=== PATIENT | female | born 1970 | race Caucasian/White ===

== ENCOUNTER → 2018-05-05 13:00 | Outpatient (CLI) | payer BC, SELFPAY ==
--- NOTE | 2018-05-05 13:02 | BI_ITS ---
MAMMOGRAPHY - BILATERAL DIAGNOSTIC REASON FOR EXAM: Female, 47 years old. 66 remote bilateral breast reduction surgery. PERTINENT HISTORY: TECHNIQUE: Digital bilateral breast marlon (3D mammographic acquisition) in the CC and MLO projections. 2-D mediolateral oblique (MLO) and craniocaudad (CC) views of both breasts were obtained. CAD: Full Field Digital Mammography with Computer Added Detection was performed. COMPARISON: Comparison is made with prior study dated January 06, 2017. FINDINGS: Breast Composition: The breasts are heterogeneously dense, which may obscure small masses. There is a 1 cm x 0.7 cm possible nodular density in the central portion of the left breast as seen on the craniocaudad view. The patient will be recalled for additional views including compression spot views and 90 degree left lateral view. No other significant abnormalities are identified. BI/SCREEN MAMM (CAD) W/MARLON BILAT IMPRESSION: Questionable nodular density in the mid left breast as described as seen on the craniocaudad view. The patient will be recalled for additional views. Recall Side: Left Breast ASSESSMENT CATEGORY: BIRADS Category 0: Incomplete. Need additional imaging evaluation. A letter regarding these results will be sent to the patient by the facility within 30 days. Approximately 10% of breast cancers are not detected by mammography. A normal mammogram should not delay biopsy of a clinically suspicious abnormality. Electronically Signed: Daniel Moise, at 14:54 EDT , Service support ,
== END ==
PROVIDERS: PCP Family Medicine; Referring Provider Obstetrics & Gynecology; Visit Provider Obstetrics & Gynecology
DX: Z12.31 Encounter for screening mammogram for malignant neoplasm of breast (principal)
CPT/HCPCS: 77063; 77067

== ENCOUNTER → 2018-05-11 08:54 | Outpatient (CLI) | payer BC, SELFPAY ==
--- NOTE | 2018-05-11 08:58 | BI_ITS ---
MAMMOGRAPHY - UNILATERAL DIAGNOSTIC: LEFT BREAST REASON FOR EXAM: Female, 47 years old. Asymmetrical density in the left breast as seen on craniocaudad view. PERTINENT HISTORY: Non-contributory. TECHNIQUE: 90 degree lateral and compression spot views of the left breast in the MLO and craniocaudad projections were obtained. CAD: Full Field Digital Mammography with Computer Added Detection was performed. COMPARISON: Comparison is made with prior mammogram dated May 05, 2018. FINDINGS: Breast Composition: The breasts are heterogeneously dense, which may obscure small masses. The previously seen nodular density in the craniocaudad view of the left breast is not well seen at this time. This may represent superimposition of tissue. Correlation with ultrasound is recommended. No other significant abnormalities are identified. BI/DIAG MAMM W/CAD, UNILAT IMPRESSION: The previously seen density is not well seen on this examination. Correlation with ultrasound is recommended. ASSESSMENT CATEGORY: BIRADS Category 0: Incomplete. Need additional imaging evaluation. A letter regarding these results will be sent to the patient by the facility within 30 days. Approximately 10% of breast cancers are not detected by mammography. A normal mammogram should not delay biopsy of a clinically suspicious abnormality. Electronically Signed: Daniel Moise, at 9:59 EDT , Service support ,
--- NOTE | 2018-05-11 09:28 | US_ITS ---
STUDY: ULTRASOUND BREAST - LEFT REASON FOR EXAM: Female, 47 years old. Abnormal screening mammogram. TECHNIQUE: Axial and longitudinal images of the LEFT breast were performed with a high resolution ultrasound transducer. COMPARISON: Comparison is made with prior mammogram dated May 11, 2018 and May 05, 2018. FINDINGS: LEFT Breast: The entire breast was examined by ultrasound. There is homogeneous fibroglandular tissue. No solid or cystic mass lesion is seen. US/Breast Limited Unilateral IMPRESSION: Unremarkable sonogram of the breasts. ASSESSMENT CATEGORY: BIRADS Category 1: Negative. A letter regarding these results will be sent to the patient by the facility within 30 days. Electronically Signed: Daniel Moise, at 10:02 EDT , Service support ,
== END ==
PROVIDERS: PCP Family Medicine; Referring Provider Obstetrics & Gynecology; Visit Provider Obstetrics & Gynecology
DX: R92.8 Other abnormal and inconclusive findings on diagnostic imaging of breast (principal)
CPT/HCPCS: 76642; 77065

== ENCOUNTER → 2021-01-16 10:36 | Outpatient (CLI) | payer BC, SELFPAY ==
--- NOTE | 2021-01-16 10:38 | BI_ITS ---
MAMMOGRAPHY - BILATERAL SCREENING REASON FOR EXAM: Female, 50 years old. Routine annual screening examination. PERTINENT HISTORY: Grandmother with breast cancer. History of prior bilateral breast reduction surgery. TECHNIQUE: Digital bilateral breast marlon (3D mammographic acquisition) in the CC and MLO projections. 2-D mediolateral oblique (MLO) and craniocaudad (CC) views of both breasts were obtained. CAD: Full Field Digital Mammography with Computer Added Detection was performed. COMPARISON: Comparison is made with prior examination dated 05/05/2018 and 01/06/2017. FINDINGS: Breast Composition: There are scattered areas of fibroglandular density. There are no dominant masses or suspicious calcifications. No other significant abnormalities are identified. There has been no significant change since the prior study. BI/SCRN MAMM (CAD)W/MARLON BILAT IMPRESSION: Stable bilateral screening mammogram. Yearly follow-up mammogram recommended. (A) ASSESSMENT CATEGORY: BIRADS Category 1: Negative. A letter regarding these results will be sent to the patient by the facility within 30 days. Approximately 10% of breast cancers are not detected by mammography. A normal mammogram should not delay biopsy of a clinically suspicious abnormality. [id number] Electronically Signed: Daniel Moise MD at 12:41 EST , Service support ,
[2021-01-21 16:16] LABS: HPV APTIMA, High Risk Negative (Negative)
== END ==
PROVIDERS: PCP Family Medicine; Referring Provider Obstetrics & Gynecology; Visit Provider Obstetrics & Gynecology
DX: Z12.31 Encounter for screening mammogram for malignant neoplasm of breast (principal); Z12.4 Encounter for screening for malignant neoplasm of cervix
CPT/HCPCS: 77063; 77067; 87624; 88175; G0145

== ENCOUNTER → 2022-01-25 | Outpatient (CLI) | payer BC, SELFPAY ==
--- NOTE | 2022-01-25 12:44 | BI_ITS ---
MAMMOGRAPHY - BILATERAL SCREENING REASON FOR EXAM: Female, 51 years old. Routine annual screening examination. PERTINENT HISTORY: Grandmother with breast cancer. History of prior bilateral breast reduction surgery. TECHNIQUE: Digital bilateral breast marlon (3D mammographic acquisition) in the CC and MLO projections. 2-D mediolateral oblique (MLO) and craniocaudad (CC) views of both breasts were obtained. CAD: Full Field Digital Mammography with Computer Added Detection was performed. COMPARISON: Comparison is made with prior study dated 01/16/2021 and 05/05/2018. FINDINGS: Breast Composition: There are scattered areas of fibroglandular density. There are no dominant masses or suspicious calcifications. No other significant abnormalities are identified. There has been no significant change since the prior study. BI/SCRN MAMM (CAD)W/MARLON BILAT IMPRESSION: Stable bilateral screening mammogram. Yearly follow-up mammogram recommended. (A) ASSESSMENT CATEGORY: BIRADS Category 1: Negative. A letter regarding these results will be sent to the patient by the facility within 30 days. Approximately 10% of breast cancers are not detected by mammography. A normal mammogram should not delay biopsy of a clinically suspicious abnormality. [id number] Electronically Signed: Daniel Moise MD at 8:35 EST ,
== END | disposition home or self-care (01) ==
LOC: OPBI 12:43
PROVIDERS: PCP Registered Nurse; Referring Provider Obstetrics & Gynecology; Visit Provider Obstetrics & Gynecology
DX: Z12.31 Encounter for screening mammogram for malignant neoplasm of breast (principal); Z80.3 Family history of malignant neoplasm of breast
CPT/HCPCS: 77063; 77067

== ENCOUNTER → 2023-02-03 | Outpatient (CLI) | payer OTHER, SELFPAY ==
--- NOTE | 2023-02-03 10:02 | BI_ITS ---
MAMMOGRAPHY - BILATERAL SCREENING 3-D TOMOSYNTHESIS REASON FOR EXAM: Female, 52 years old. Routine annual screening mammogram. PERTINENT HISTORY: Grandmother with breast cancer and history of bilateral breast reduction surgery. TECHNIQUE: 2-D mammograms and 3-D Tomosynthesis of the breast (s) were performed. CAD was performed. COMPARISON: January 25, 2022, January 16, 2021 FINDINGS: The breast composition is composed of scattered fibroglandular density. Stable axillary lymph nodes. No dominant masses, suspicious microcalcifications, asymmetries, skin thickening or nipple retraction. BI/SCRN MAMM (CAD)W/MARLON BILAT IMPRESSION: No interval change and no mammographic signs of malignancy. Routine yearly mammogram recommended. ASSESSMENT CATEGORY: BIRADS Category 2: Benign. A letter regarding these results will be sent to the patient by the facility within 30 days. FOLLOW UP RECOMMENDATION: Yearly follow up mammogram recommended. (A) Approximately 10% of breast cancers are not detected by mammography. A normal mammogram should not delay biopsy of a clinically suspicious abnormality. Electronically Signed: Gigi Cam MD at 12:59 EST ,
== END | disposition home or self-care (01) ==
LOC: OPBI 09:59
PROVIDERS: PCP Registered Nurse; Referring Provider Registered Nurse; Visit Provider Registered Nurse
DX: Z12.31 Encounter for screening mammogram for malignant neoplasm of breast (principal); Z80.3 Family history of malignant neoplasm of breast
CPT/HCPCS: 77063; 77067

== ENCOUNTER → 2024-04-17 | Outpatient (CLI) | payer BC, SELFPAY ==
--- NOTE | 2024-04-17 10:17 | BI_ITS ---
PROCEDURE: SCRN MAMM (CAD)W/MARLON BILAT REASON FOR EXAM: F, Age 53 y/o , SCREENING. Family history of breast cancer in maternal grandmother in her 60s. TECHNIQUE: Bilateral screening digital breast tomosynthesis with 2D and 3D images. Computer aided detection. COMPARISON: 01/26/2023, 01/25/2022 FINDINGS: There are scattered areas of fibroglandular density. No suspicious masses, areas of developing architectural distortion, or suspicious calcifications. BI/SCRN MAMM (CAD)W/MARLON BILAT IMPRESSION: There is no mammographic evidence of malignancy. BI-RADS 1: NEGATIVE. RECOMMEND ANNUAL MAMMOGRAPHIC SCREENING. Follow-up code: Routine Follow-up The patient will be notified of the results by letter. Reading Location: [id number]
== END | disposition home or self-care (01) ==
LOC: OPBI 10:14
PROVIDERS: PCP Registered Nurse; Referring Provider Registered Nurse; Visit Provider Registered Nurse
DX: Z12.31 Encounter for screening mammogram for malignant neoplasm of breast (principal); Z80.3 Family history of malignant neoplasm of breast
CPT/HCPCS: 77063; 77067

== ENCOUNTER → 2024-05-23 | Outpatient (CLI) | payer BC, SELFPAY ==
--- NOTE | 2024-05-23 14:38 | US_ITS ---
PROCEDURE: PELVIC W/ TRANSVAGINAL 05/23/2024 REASON FOR EXAM: CRAMPING AND HEAVY BLEEDING; LMP: 05/04/2024 TECHNIQUE: Transabdominal and transvaginal pelvic ultrasound COMPARISON: None FINDINGS: Measurements: Uterus: Retroverted. 9.2 x 8.0 x 5.7 cm with a volume of 222 mL Endometrial Thickness: 6 mm Right Ovary: 3.2 x 2.0 x 2.1 cm. Left Ovary: 5.5 x 3.7 x 3.8 cm. Uterus: 3.2 x 3.6 x 3.1 cm fundal fibroid. 1.6 x 1.9 x 1.5 cm right-sided fibroid. 2.9 x 2.9 x 2.1 cm left fibroid. Endometrium: Hypoechoic Right ovary: Normal size and echotexture. Left ovary: 3.1 x 2.9 x 2.7 cm cyst. Other: Mild free fluid in the cul-de-sac. US/Pelvic w/ Transvaginal IMPRESSION: Normal endometrial thickness without endometrial mass or fluid. Uterine fibroids measure up to 3.6 cm. 3.1 cm left ovarian cyst may represent a dominant follicle. Reading [facility]
== END | disposition home or self-care (01) ==
LOC: US 14:36
PROVIDERS: PCP Registered Nurse; Referring Provider Obstetrics & Gynecology; Visit Provider Obstetrics & Gynecology
DX: N94.6 Dysmenorrhea, unspecified (principal); N92.0 Excessive and frequent menstruation with regular cycle
CPT/HCPCS: 76830; 76856

== ENCOUNTER → 2024-06-08 | Outpatient (CLI) | payer BC, SELFPAY ==
--- NOTE | 2024-06-08 | EMB_PTH ---
PATIENT: MEHNAZ PITTMAN LOC: [facility] #:[id number] AGE/SX: 53/F ROOM: RE06/08/[address]: Dr. Dilcia Araujo MD : 1970 BED: DIS: 06/08/2024 SPEC #: [id number] RECD: 06/08/24 15:52 STATUS: BUNNY TRACEY #: [id number] ISABELLA: 06/08/24 00:[address]: Dilcia Araujo DEPT: SURGICAL PATHOLOGY RECD BY: Maria Isabel Aguilar ENTERED: 06/11/24 07:19 SP TYPE: ENDOM BX/C JIMMIE DR: Tatiana Lewis, MAINTENANCE JOURNEYMAN-C Tissues: A - Endometrium, NOS Procedures: Surgery Specimen Level IV HEADER OPERATION: Endometrial biopsy PRE-OP DIAGNOSIS: Menorrhagia TISSUE SUBMITTED: A- Endometrial tissue MICROSCOPIC DIAGNOSIS A. Endometrium, biopsy: * Focal simple hyperplasia without atypia. MICROSCOPIC DESCRIPTION Slides are reviewed. GROSS DESCRIPTION A. Received in formalin in a container labeled with the patient's name, date of , and with no further designation are multiple red-meyer fragments of soft tissue admixed with blood and mucus measuring 2.5 x 1.4 x 0.3 cm in aggregate. Submitted in toto in A1. [facility] 06-11-2024 CPT:71947
== END | disposition home or self-care (01) ==
LOC: LABSPEC 15:19
PROVIDERS: PCP Registered Nurse; Referring Provider Obstetrics & Gynecology; Visit Provider Obstetrics & Gynecology
DX: N92.0 Excessive and frequent menstruation with regular cycle (principal)
CPT/HCPCS: 88305

== ENCOUNTER 2024-08-07 09:04 | Day surgery (SDC) | payer BC, SELFPAY ==
[2024-07-26 13:05] LABS: Magnesium 2.1 mg/dL (1.5-2.2)
--- NOTE | 2024-07-26 13:17 | EKG12_ITS ---
Test Reason : PRE OP Blood Pressure : */* mmHG Vent. Rate : 73 BPM Atrial Rate : 73 BPM P-R Int : 116 ms QRS Dur : 66 ms QT Int : 414 ms P-R-T Axes : 68 101 40 degrees QTcB Int : 456 ms Normal sinus rhythm Rightward axis Possible Inferior infarct , age undetermined Abnormal ECG Confirmed by KIM OH, ASHLEY ([id number]), movie editor DARNELL DUVALL ([id number]) on 07/27/2024 1:04:59 PM Referred By: Dilcia Araujo Confirmed By: ASHLEY ALVAREZ MD
--- NOTE | 2024-07-27 08:33 | PAT.ANESEVAL ---
Pre-Assessment Diagnosis/Proposed Procedure Planned Operative Procedure(s): LAPAROSCOPIC ASSISTED VAGINAL HYSTERECTOMY, BILATERAL SALPINGECTOMY Anesthesia History Anesthesia History - senior marketing manager: Anesthesia History - senior marketing manager Hx Hospitalization No 07/24/24 10:03 Any Problems With Anesthesia No 07/24/24 10:03 Cholinesterase deficiency No 07/24/24 10:03 You/Your Family Experience No 07/24/24 10:03 fever (hyperthermia) with Relationship Recent Exposure to Contagious Disease Does patient have nerve No 07/24/24 10:03 stimulator Patient instructed to have device shut off --Does patient have Pacemaker or ICD? When Was Last Pacemaker Check QUESTION #4 FULL TEXT: You/Your Family Experience fever (hyperthermia) with Anesthesia Last Oral Intake Last Oral intake: Last Oral Intake NPO since Meds taken in AM with sips of water? Meds patient instructed to take am of surgery PONV PONV - senior marketing manager: PONV - senior marketing manager Female Yes 07/24/24 10:03 HX of Motion Sickness No 07/24/24 10:03 HX of N/V After Surgery No 07/24/24 10:03 Non-Smoker Yes 07/24/24 10:03 Duration of Surgery greater Yes 07/24/24 10:03 than 60 minutes Number of Risk Factors 3 07/24/24 10:03 PONV Score Moderate Risk 07/24/24 10:03 Height & Weight Height & Weight: Anesthesia: Height & Weight Height 5 ft 6 in 06/08/24 13:54 Respiratory Assessment Respiratory Assessment - senior marketing manager: Respiratory Tract Infection Hx - senior marketing manager Hx Respiratory Tract Infection No 07/24/24 10:03 STOP Sleep Apnea STOP Sleep Apnea - senior marketing manager: STOP Sleep Apnea - senior marketing manager Hx Hypertension Yes: CONTROLLED WITH MEDS 07/24/24 10:03 Hx Sleep Apnea No 07/24/24 10:03 CPAP BIPAP Do you snore loudly (louder Yes 07/24/24 10:03 than talking or can be heard Do you often feel tired/ No 07/24/24 10:03 fatigued/ sleepy during daytime? Has anyone observed you stop No 07/24/24 10:03 breathing during sleep? STOP Results Positive 07/24/24 10:03 QUESTION #5 FULL TEXT : Do you snore loudly (louder than talking or can be heard through closed doors)? Tobacco Use History Tobacco Use History - senior marketing manager: Tobacco Use History - senior marketing manager Tobacco Use Smoking Status Never smoker 07/24/24 10:03 Hx Tobacco Use No 07/24/24 10:03 Years Smoking Packs Smoked per Day Smoking Cessation Date was within the last 15 years Hx Smoking Cessation Date Hx Smoking Cessation Counseling Hematologic Medial History Hematologic Hx - senior marketing manager: Hematologic Medical Hx - rn clinical documentation specialist Hx of Blood Transfusion No 07/24/24 10:03 Hx of Transfusion in last 3 No 07/24/24 10:03 Months Date of Last Transfusion (if within last 3 months) Ever experience any problems No 07/24/24 10:03 with transfusion(s)? Specify any problems Hx of Preganancy in last 3 No 07/24/24 10:03 Months Nurse Filling Out Transfusion [id number] 07/24/24 10:03 & Questions: Date: 07/24/24 07/24/24 10:03 Time: 10:07 07/24/24 10:03 Patient unable to answer at this time (ie. confused, unrespo /Reproduction History /Reproductive History - senior marketing manager: /Reproductive Hx- senior marketing manager Hx Now No 07/24/24 10:03 Gestational Age (in weeks): EDC: Hx Hx Para Hx Section SAB No 07/24/24 10:03 [facility] Medical History History of abnormal cervical Pap smear Home Medications ?Medication ?Instructions ?Recorded ?Last Taken ?Type montelukast 10 mg tablet 10 mg PO DAILY 04/04/23 Unknown History (Singulair) levocetirizine 5 mg tablet 5 mg PO QDAY 05/21/24 Unknown History olmesartan 20 mg tablet (Benicar) 20 mg PO DAILY 07/23/24 Unknown History omega-3 fatty acids 1,000 mg PO DAILY 07/24/24 Unknown History Allergy/AdvReac Type Severity Reaction Status Date / Time No Known Allergies Allergy Verified 07/24/24 10:02 Family History Father Myocardial infarction Cancer Throat Mother Cancer lung Grandmother Breast cancer Surgical History History of ankle surgery Hx of breast reduction, elective H/O LEEP Social History Smoking Status: Never smoker alcohol intake: never substance use type: does not use caffeine: Yes what type of physical activity do you participate in: walking and aerobics frequency: 5-6 times per week seatbelt use: always additional social history: [employer]: Pertinent Findings Pertinent Findings EKG Perinent findings: July 26, 2024. Normal sinus rhythm. Right axis deviation. Possible inferior infarct, age undetermined. Recommendation Anesthesia Recommendation Anesthesia recommendation: OPTIMIZED for anesthesia
--- NOTE | 2024-08-06 12:39 | HP.PCM_ITS ---
History and Physical Date of Admission: 08/07/24 Intake Vital Signs 06/08/2512:54 07/23/2512:15 Height 5 ft 6 in 5 ft 6 in Weight: 159 lb 4 oz 160 lb 4 oz BMI 25.7 25.8 BP 150/102 H 159/92 H Intake Visit Reasons: [facility] Strategic Partnership Manager Required: No Is patient in pain?: Yes (light cramping) Allergies No Known Allergies Allergy (Verified 07/23/24 13:17) Medications ?Medication ?Instructions ?Recorded ?Confirmed ?Type montelukast 10 mg tablet 10 mg PO DAILY 04/04/23 07/23/24 History (Singulair) levocetirizine 5 mg tablet 5 mg PO QDAY 05/21/24 07/23/24 History olmesartan 20 mg tablet (Benicar) 20 mg PO DAILY 07/23/24 07/23/24 History Is last menstrual period known: Yes Last Menstrual Period: 05/25/24 Post menopausal: No Patient : No : No [facility] Medical History History of abnormal cervical Pap smear Surgical History History of ankle surgery Hx of breast reduction, elective H/O LEEP Family History Father Myocardial infarction Cancer ThroatMother Cancer lungGrandmother Breast cancer Social History Smoking Status: Never smoker alcohol intake: never substance use type: does not use caffeine: Yes what type of physical activity do you participate in: walking and aerobics frequency: 5-6 times per week seatbelt use: always additional social history: [facility] Details: MEHNAZ PITTMAN is a 53 year old who presents for preop visit. she has been having heavy vaginal bleeding, incresaisng over the last year since nexplanon removal. intermenstrual bleeding, severe dysmenorrhea, multiple fibroids present. she took a course of ayggestin to help the beginning of the month last month. she is having an [facility] BS. Uterus: Retroverted. 9.2 x 8.0 x 5.7 cm with a volume of 222 mL Endometrial Thickness: 6 mm Right Ovary: 3.2 x 2.0 x 2.1 cm. Left Ovary: 5.5 x 3.7 x 3.8 cm. Uterus: 3.2 x 3.6 x 3.1 cm fundal fibroid. 1.6 x 1.9 x 1.5 cm right-sided fibroid. 2.9 x 2.9 x 2.1 cm left fibroid. Endometrium: Hypoechoic Right ovary: Normal size and echotexture. Left ovary: 3.1 x 2.9 x 2.7 cm cyst. Other: Mild free fluid in the cul-de-sac. US/Pelvic w/ Transvaginal IMPRESSION: Normal endometrial thickness without endometrial mass or fluid. Uterine fibroids measure up to 3.6 cm. 3.1 cm left ovarian cyst may represent a dominant follicle. Female Reproductive History Last Menstrual Period: 05/25/24 Menopausal Symptoms: No night sweats History 3 Elective abortions Hx Para 3 Spontaneous abortions Hx # Term Pregnancies Ectopic pregnancies Hx # Pregnancies Multiple births # of living children Past Pregnancies Del. Date Name GA/Weeks Outcome Route Bth Weight Gen Labor Lgth Anesthesia Del Locatn Provider FOB Unknown 2001 Nimisha live - full term NSV D Female Unknown 2003 Lexus 38 live - full term NS VD Unknown 2007 Robin 40 live - full term NS VD Male [place] ROS Const Constitutional: Denies fatigue, night sweats, weight gain or weight loss ENT ENT: Reports system reviewed and no additional complaints, except as documented Cardio Card: Denies chest pain Resp Resp: Denies cough or dyspnea GI GI: Reports as per HPI; Denies abdominal pain, constipation, nausea or vomiting : Denies nipple discharge, urinary frequency, urinary incontinence, urinary hesitancy, urinary urgency, vaginal discharge, vaginal dryness, vaginal odor or vaginal pruritus Musc Musc: Denies arthralgias, back pain or muscle weakness Skin Skin/Breast: Denies alopecia, change in hair, dry skin, breast mass, breast pain, breast skin changes or nipple discharge Neuro Neuro: Reports system reviewed and no additional complaints, except as documented Psych Psych: Reports system reviewed and no additional complaints, except as documented Endo Endo: Denies cold intolerance, excessive sweating, heat intolerance or polydipsia Jarod/Lymph Hematologic/Lymphatic: Denies easy bleeding, Denies easy bruising and Denies lymphadenopathy Exam Const General: cooperative, healthy appearing, comfortable and no acute distress Orientation: alert HENMT Head: normal to inspection and normocephalic Ears: hearing grossly normal bilaterally and external ears normal Nose: external nose normal and nares normal Face and sinus: normal facial exam Neck Neck: normal visual inspection and no lymphadenopathy Thyroid: thyroid normal Chest Chest palpation & inspection: normal inspection of the chest Resp Effort & Inspection: normal respiratory effort Auscultation: clear to auscultation bilaterally Cardio Rate: regular rate Rhythm: regular rhythm Heart Sounds: S1 normal and S2 normal GI Inspection: normal to inspection and non-distended Palpation: soft and no hepatosplenomegaly Musc Other: gross motor intact no deficits, full bilateral strength Skin General: no rashes or lesions noted Neuro General: patient alert, patient awake, moves all extremities and no focal motor deficits Motor: muscle tone normal throughout Extrem General: normal to inspection and no pedal edema Psych Appearance: grossly normal Mental Status: mental status grossly normal Affect: normal affect Speech and Movement: speech and movement normal Coding Level of Care Code No Charge Diagnoses Uterine fibroid D25.9 Dysmenorrhea N94.6 Menorrhagia N92.0 Endometrial hyperplasia without atypia N85.00 Assessment and Plan Assessment and Plan (1) Uterine fibroid: Status: Acute Comment: discussed options myfembree vs hysterectomy. plan [facility] (2) Dysmenorrhea: Status: Acute (3) Menorrhagia: Status: Acute (4) Endometrial hyperplasia without atypia: Status: Acute Plan After discussing the patient's diagnosis and treatment plan options, patient wishes to proceed with surgical management. I have discussed with the patient the risks, benefits, and alternatives of the procedure which include but are not limited to risks of anesthesia, bleeding, infection, possible damage to bowel, bladder, or surrounding vasculature which could lead to additional surgery to evaluate any complications. Patient agrees to procedure and wishes to proceed. ACOG/uptodate references given for additional information regarding procedure.
[2024-08-07] VITALS (13 sets, daily range): BP systolic 123–168; BP diastolic 79–93; PULSE 60–92; RESP 12–18; TEMP 36.2–36.8; O2SAT 92–100; BMI 25.9
[2024-08-07 09:24] LABS: Internal QC Validated? YES +Cl - CLEAR BKGD
[2024-08-07 09:25] LABS: Pregnancy, Urine Negative Negative; Record Kit Lot#,Urine Preg 0000947241
[2024-08-07] MEDS: Scopolamine 1mg/72hr Patch 1 PATCH TD (09:39)
[2024-08-07] MEDS: Lactated Ringers 1,000 ML 40 ML IV (09:40)
[2024-08-07] MEDS: Magnesium 1 GM over 15 mins IV (09:40)
--- NOTE | 2024-08-07 09:51 | PCM.PRE.AN2 ---
ASA Classification* ASA Classification ASA Classification: 2 Assessment & Plan Anesthesia* Anesthesia Assessment Anesthesia Assessment: Discussed sedation and/or anesthesia options, risks, benefits, and alternatives with patient/parents/legal guardian/POA. Questions invited. The patient/parents/legal guardian/POA seems to understand and agrees to proceed with anesthesia plan. Reviewed the physical assessment, medical history, allergy history and patient home medications list prior to surgery/procedure/anesthetic and documented any changes. Performed airway and anesthesia risk assessments. Anesthesia Type Anesthesia Type: General History Source History Obtained from:: Patient and Chart Anesthesia Focused Assessment* Temperature: 98.3 F Pulse Rate: 74 Blood Pressure: 168/93 Respiratory Rate: 16 Pulse Ox: 98 Oxygen Delivery Method: Room Air Airway Assessment Mouth opens: >3 cm Mallampati Score: II Teeth Condition: Intact Neck Range of motion (ROM): Full ROM Labs Anesthesia Preop lab: CBC CHEMISTRY Magnesium 2.1 mg/dL (1.5-2.2) 07/26/24 10:41 07/26/24 COAG Urine Test Negative Negative 08/07/24 09:20 08/07/24 Pre-Assessment Diagnosis/Proposed Procedure Planned Operative Procedure(s): LAPAROSCOPIC ASSISTED VAGINAL HYSTERECTOMY, BILATERAL SALPINGECTOMY Anesthesia History 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 When Was Last Pacemaker Check QUESTION #4 FULL TEXT: You/Your Family Experience fever (hyperthermia) with Anesthesia Last Oral Intake Last Oral intake: Last Oral Intake NPO since 07:00 08/07/24 09:32 Meds taken in AM with sips of Yes 08/07/24 09:32 water? Meds patient instructed to OLMESARTAN 08/07/24 09:32 take am of surgery PONV PONV - teacher of family and consumer science: PONV - teacher of family and consumer science Female Yes 07/24/24 10:03 HX of Motion Sickness No 07/24/24 10:03 HX of N/V After Surgery No 07/24/24 10:03 Non-Smoker Yes 07/24/24 10:03 Duration of Surgery greater Yes 07/24/24 10:03 than 60 minutes Number of Risk Factors 3 07/24/24 10:03 PONV Score Moderate Risk 07/24/24 10:03 Height & Weight Height & Weight: Anesthesia: Height & Weight Height 5 ft 6 in 08/07/24 09:32 Weight: 73 kg 08/07/24 09:32 Body Mass Index (BMI) 25.9 08/07/24 09:32 Respiratory Assessment Respiratory Assessment - teacher of family and consumer science: Respiratory Tract Infection Hx - teacher of family and consumer science Hx Respiratory Tract Infection No 07/24/24 10:03 STOP Sleep Apnea STOP Sleep Apnea - teacher of family and consumer science: STOP Sleep Apnea - teacher of family and consumer science Hx Hypertension Yes: CONTROLLED WITH MEDS 07/24/24 10:03 Hx Sleep Apnea No 07/24/24 10:03 CPAP BIPAP Do you snore loudly (louder Yes 07/24/24 10:03 than talking or can be heard Do you often feel tired/ No 07/24/24 10:03 fatigued/ sleepy during daytime? Has anyone observed you stop No 07/24/24 10:03 breathing during sleep? STOP Results Positive 07/24/24 10:03 QUESTION #5 FULL TEXT : Do you snore loudly (louder than talking or can be heard through closed doors)? 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 Specify any problems Hx of Preganancy in last 3 No 07/24/24 10:03 Months Nurse Filling Out Transfusion [email or web address] 07/24/24 10:03 & Questions: Date: 07/24/24 07/24/24 10:03 Time: 10:07 07/24/24 10:03 Patient unable to answer at this time (ie. confused, unrespo /Reproduction History /Reproductive History - teacher of family and consumer science: /Reproductive Hx- teacher of family and consumer science Hx Now No 07/24/24 10:03 Gestational Age (in weeks): EDC: Hx Hx Para Hx Section SAB No 07/24/24 10:03 Active Medications Active Medications: Current Medications Generic Name Dose Route Start Last Admin Trade Name Freq PRN Reason Stop Dose Admin Acetaminophen 1,000 mg 08/07/24 11:15 08/07/24 09:40 Acetaminophen 500 Mg Tablet PO 08/07/24 11:16 1,000 mg PREOP ONE Administration Celecoxib 400 mg 08/07/24 11:15 08/07/24 09:40 Celecoxib 200 Mg Capsule PO 08/07/24 11:16 400 mg PREOP ONE Administration Dexamethasone Sodium Phosphate 8 mg 08/07/24 11:15 Dexamethasone 4 Mg/Ml Vial IV 08/07/24 11:16 INTRAOP ONE Enoxaparin Sodium 40 mg 08/07/24 11:15 08/07/24 09:39 Enoxaparin 40 Mg/0.4 Ml Syringe SC 08/07/24 11:16 40 mg PREOP ONE Administration Gabapentin 600 mg 08/07/24 11:15 08/07/24 09:42 Gabapentin 600 Mg Tablet PO 08/07/24 11:16 600 mg PREOP ONE Administration Lactated Ringer's 1,000 mls @ 40 mls/hr 08/07/24 11:15 08/07/24 09:40 IV 40 mls/hr .Q25H MARQUES Administration Cefazolin Sodium 2 gm/ Sodium 110 mls @ 150 mls/hr 08/07/24 11:15 Chloride IV 08/07/24 11:58 INTRAOP ONE Magnesium Sulfate 1 gm/ 102 mls @ 408 mls/hr 08/07/24 11:15 08/07/24 09:40 Dextrose IV 08/07/24 11:29 408 mls/hr INTRAOP ONE Administration Insulin Human Lispro 0 unit 08/07/24 11:15 Insulin Lispro 100 Unit/Ml Insuln.Pen SC Q4H PRN PRN BG >/= 180, SEE PROTOCOL Protocol Ondansetron HCl 4 mg 08/07/24 11:15 Ondansetron 4 Mg/2 Ml Vial IV 08/07/24 11:16 INTRAOP ONE Phenazopyridine HCl 190 mg 08/07/24 11:15 08/07/24 09:40 Phenazopyridine 95 Mg Tablet PO 08/07/24 11:16 190 mg PREOP ONE Administration Scopolamine HBr 1 patch 08/07/24 11:15 08/07/24 09:39 Scopolamine 1mg/72hr Patch TD 08/07/24 11:16 1 patch PREOP ONE Administration PFSH Medical History Non-smoker History of abnormal cervical Pap smear Home Medications ?Medication ?Instructions ?Recorded ?Last Taken ?Type montelukast 10 mg tablet 10 mg PO DAILY 04/04/23 08/06/24 History (Singulair) levocetirizine 5 mg tablet 5 mg PO QDAY 05/21/24 08/06/24 History olmesartan 20 mg tablet (Benicar) 20 mg PO DAILY 07/23/24 08/07/24 History omega-3 fatty acids 1,000 mg PO DAILY 07/24/24 08/06/24 History Allergy/AdvReac Type Severity Reaction Status Date / Time No Known Allergies Allergy Verified 08/07/24 09:30 Family History Father Myocardial infarction Cancer Throat Mother Cancer lung Grandmother Breast cancer Surgical History History of ankle surgery Hx of breast reduction, elective H/O LEEP Social History Smoking Status: Never smoker alcohol intake: never substance use type: does not use caffeine: Yes what type of physical activity do you participate in: walking and aerobics frequency: 5-6 times per week seatbelt use: always 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 Physical Exam Const alert and oriented x3 Neck full ROM Resp normal respiratory effort and normal air movement Cardio regular rate and regular rhythm Extremity full ROM Skin Rashes: no rashes Neuro oriented x3 and moves all extremities
--- NOTE | 2024-08-07 11:15 | UT_PTH ---
PATIENT: MEHNAZ PITTMAN [place] [facility] [id number] AGE/SX: 53/F ROOM: RE08/07/[address]: Dr. Dilcia Araujo MD : 1970 BED: DIS: 08/07/2024 SPEC #: [id number] RECD: 08/07/24 15:37 STATUS: BUNNY TRACEY #: [id number] ISABELLA: 08/07/24 11:[address]: Dilcia Araujo DEPT: SURGICAL PATHOLOGY RECD BY: Pete Monge ENTERED: 08/08/24 10:36 SP TYPE: UTERUS OTHR DR: Tatiana Lewis, MARKETING REGIONAL CONSULTANT-C Tissues: A - Uterus, NOS B - Vulva, NOS Procedures: Surgery Specimen Level IV Surgery Specimen Level V HEADER OPERATION: ERAS, laparoscopic assisted vaginal hysterectomy, bilateral PRE-OP DIAGNOSIS: Uterine fibroid, dysmenorrhea, menorrhagia, endometrial hyperplasia without atypia TISSUE SUBMITTED: A- Uterus, cervix, bilateral fallopian tubes, B- Left vulvar lesion MICROSCOPIC DIAGNOSIS A. Uterus, cervix, bilateral fallopian tubes, uterine fibroid, dysmenorrhea, menorrhagia, endometrial hyperplasia without atypia, vaginal hysterectomy: Unremarkable cervix and fallopian tubes Inactive endometrium Adenomyosis Leiomyomas Negative for malignancy. B. Vulva, left, lesion, excision: Hemangioma MICROSCOPIC DESCRIPTION Slides are reviewed. GROSS DESCRIPTION Received in 2 formalin containers labeled with the patient's name and date of . Designated as: A. Uterus, cervix, bilateral fallopian tubes is a 154.9 g, 9.9 x 5.9 x 4.4 cm somewhat distorted uterus. The serosa is meyer-pink to purple with focal adhesions. The attached cervix is meyer-pink and somewhat granular with iatrogenic defects, and measures 4.5 x 4.4 cm; the 0.7 cm os is patent and expelling hemorrhagic mucoid material. The specimen is inked as follows: Awnyacfi-howcrJltfdeoxh-xfeueOraaoahhrfq-orange Opening reveals a 5.6 x 2.8 cm endometrial canal lined by pink-red somewhat lush measuring up to 0.3 cm thick. The myometrium is meyer-pink and somewhat trabeculated measuring up to to 2.3 cm thick. Subserosal and intramural leiomyomas are identified, up to 2.0 cm. The purple bilateral fallopian tubes are fimbriated and measure 4.4 x 0.7 cm (L) and 4.7 x 0.5 cm (R). Few paratubal cysts are identified, <0.1 cm to 0.3 cm. Acid Dipper sections are submitted as follows: A1: Anterior cervixA2: Posterior cervix A3-A9: Anterior endometrium A10-A16: Posterior endometrium Endometrium entirely submitted sequentially from lower uterine segment to eynyaM31: Left fallopian tubeA18: Right fallopian tubeA19: Leiomyomas B. Left vulvar lesion is a 0.4 x 0.3 x 0.3 cm meyer-heredia rubbery skin shave devoid of orientation. The resection margin is inked black, the specimen is bisected (on the long axis) and entirely submitted in [address] 08/08/2024 CPT:23166,57687
[2024-08-07] MEDS: Cefazolin 2 GM in 0.9% Normal Saline (100mL Bag) 100 ML IV (11:42)
--- NOTE | 2024-08-07 12:01 | OP.PCM_ITS ---
Problems Associated Problem List Diagnoses (1) Endometriosis: (2) Vulvar lesion: (3) Endometrial hyperplasia without atypia: (4) Uterine fibroid: (5) Menorrhagia: (6) Dysmenorrhea: Procedures Urinary/Genital 52xxx-59xxx: 30929 LAVH+BS/O <250gr Uterus Operative Report (Standard) Operative Information Date of Procedure: 08/07/24 Pre-Operative Diagnosis: see problem list Post-Operative Diagnosis: same plus stage I endometriosis Surgery/Procedure Performed: laparoscopic assisted vaginal hysterectomy bilateral salpingectomy eft vulvar skin tag removal ablation of endometriosis tennis court attendant: Yes Masking Machine Operator: Casey Benitez Tasks completed by wheelchair van operator first responder: Opening & closing, Trocar and Retracting Additional assistant production manager?: No Type of Anesthesia: General RN Documented Start/Stop Times: Operation Date: 08/07/24 11:15 Case Time Into Pre-Op 08/07/24 09:19 Out of Pre-Op 08/07/24 11:39 Anesthesia Start 08/07/24 11:42 Into Room 08/07/24 11:42 Procedure Start 08/07/24 12:09 Procedure End 08/07/24 13:42 Anesthesia End 08/07/24 13:57 Out of Room 08/07/24 13:57 Into Recovery 08/07/24 14:00 Out of Recovery 08/07/24 15:31 Into Phase II Recovery 08/07/24 15:32 Procedure Start Time: 12:09 Procedure Stop Time: 13:42 Select all DRAINS/GRAFTS/IMPLANTS that apply: Drains (perdue) Drain details: perdue Estimated Blood Loss: 200 Fluids Replaced: crystalloid Specimen collected: Yes Description of specimen(s) removed: uterus and tubes Description of surgery: Patient received preoperative antibiotics and SCDs were on preoperatively. Patient was taken back to the operating room and placed in the dorsal lithotomy position. General anesthesia was induced and patient was prepped and draped in normal sterile fashion. Uterine manipulator was placed inside the uterus and Perdue catheter placed in the bladder. The umbilicus was grasped with towel clamps and an intraumbilical incision was made after injecting with quarter percent Marcaine and a Veress needle entered into the abdomen confirmed to be intra-abdominal with a low opening pressure. Abdomen was insufflated with CO2 gas and the Veress needle removed and the 5 mm trocar was placed under direct visualization without complication. Right and left lower quadrants were transilluminated and injected with quarter percent Marcaine and 5 mm ports placed under direct visualization. Pelvis was well visualized see operative findings for additional information. Bilateral fallopian tubes were identified and after taking down scarring likely from endometriosis, the mesosalpinx transected with the LigaSure device across the mesosalpinx to the level of the utero-ovarian ligament which was also transected with the LigaSure device. The broad ligament was opened up by transecting the round ligament bilaterally and skeletonizing the uterine vessels bilaterally, and creating a bladder flap using the LigaSure device. The uterine arteries were transected bilaterally with good visualization of the bladder and the ureters were seen to be inferior lateral to the operative area. endometriosis lesions seen in the cul de sac which were ablated with the monopolar scissors. Attention was then paid to the vaginal portion of the procedure and the cervix was grasped with Jose Alfredo clamps and circumferentially injected with dilute vasopressin. A circumferential incision was made and the vaginal mucosa was mobilized off posteriorly and the cul-de-sac entered into sharply and a longneck speculum placed. The anterior cul-de-sac was then identified and entered into sharply. The uterosacral ligaments were clamped cut and suture ligated with 0 Monocryl bilaterally followed by the cardinal ligaments which were clamped cut and suture ligated bilaterally with 0 Monocryl. The uterus serially descended and was removed without difficulty with minimal morcellation. Pelvic sidewall pedicles were checked and noted to have excellent hemostasis. The vaginal mucosa was reapproximated incorporating the posterior peritoneum. This was reapproximated using 0 Vicryl [id number] sutures. Excellent hemostasis was noted. left vulvar lesions removed via scalpel and hemostasis with cautery. Attention paid to the abdominal portion of the procedure again. The pelvis and cul-de-sac was well visualized and no significant active bleeding noted but some raw areas were seen on the peritoneum and therefore hemoblast was applied. Pressure was taken down and the areas visualized and noted of excellent hemostasis. All ports were removed under direct visualization without complication and the abdomen was desufflated of air. The instruments removed from the abdomen and the vagina vaginal sweep was negative. Port sites on the abdomen were closed with 4-0 Monocryl interrupted sutures and Steri's and windows were applied. She was awoken and taken recovery in stable condition. Surgical Findings: stage I endometriosis pelvic congestion peritubal adhesions multiple fibroids mild apical prolapse corrected with apical support during cuff closure Complications Complications: No
--- NOTE | 2024-08-07 14:03 | PCM.POST.ANE ---
Anesthesia: Postop Eval I Current Vital Signs Temperature: 97.6 F Pulse Rate: 62 Blood Pressure: 123/80 Respiratory Rate: 16 Pulse Ox: 94 Oxygen Delivery Method: Room Air Assessment Airway patent: Yes Spontaneous unlabored respirations: Yes Mental status: Calm nausea: No Vomiting: No Anesthesia Complication: No Fluid Hydration Crystalloid volume administer (ml): 1,400 Total IV fluid infused: 1,400 Progress Note Anesthesia document: Postop Eval 1 completed: Yes
--- NOTE | 2024-08-07 14:31 | PCM.DC ---
Discharge Instructions Diet Discharge Diet: No restrictions DC O2, CPAP, BIPAP needs Home O2 Discharge instructions: No Dressing / Incision May resume sexual activity in: 6 weeks Weight Bearing Status: Full weight bearing Dressing / Incision Call your doctor if your incision/area has: Continuous Slow Oozing, Sudden Increased Bleeding, Increased Pain/ Swelling, Increased Redness and Foul Smelling Discharge Call your doctor if you observe: Fever of 101 or Higher, Using more than 1 pad per hour, Shortness of breath, Chest pain and Uncontrolled pain Suture Line Care: Avoid Pulling/Pushing and Avoid Pinching/Bending Remove Dressing in: 1 week (if present) Cleanse incision/area with: Soap & Water and Keep Dressing Clean & Dry Follow Up Care Please Follow Up With: Dilcia Araujo MD When: Call to make an appointment with your doctor for a postop visit in 2 and 6 weeks. Test Results: Test results from this visit will be discussed in further detail at your follow-up appointment, if applicable. Discharge Plan Admission Attending Provider: Dilcia Araujo Primary Care Provider: Tatiana Lewis NP Instructions Print Language: Mongolian Discharge Orders/Prescriptions Prescriptions: New oxycodone-acetaminophen [Percocet] 5-325 mg tablet 1 tab PO Q4H PRN (Reason: pain) 7 Days Qty: 20 0RF naproxen 500 mg tablet 500 mg PO BID PRN PRN (Reason: Pain) Qty: 30 1RF No Action montelukast [Singulair] 10 mg tablet 10 mg PO DAILY olmesartan [Benicar] 20 mg tablet 20 mg PO DAILY levocetirizine 5 mg tablet 5 mg PO QDAY omega-3 fatty acids Capsule 1,000 mg PO DAILY Other Ambulatory Orders: 12 Lead EKG (Routine) Timeframe: 20240726 Location: None Selected Ordered By: Dr. Bradley Michel Referrals / Follow Up: Tatiana Lewis NP, PRODUCT ARCHITECT-C [Primary Care Provider] - Disposition Disposition (needs filled in before D/C Order can be placed): Home, Self Care
--- NOTE | 2024-08-07 15:36 | POSTOPAN2_ITS ---
Anesthesia Postop Eval I Sum Postop Eval Completion status Anesthesia document: Postop Eval 1 completed: Yes Anesthesia Postop Eval I Summary Anesthesia Postop Eval I Summary: Anesthesia Postop Eval I: Assessment Summary Airway patent Yes 08/07/24 14:04 THERMOSPRAY [email or web address] Spontaneous unlabored Yes 08/07/24 14:04 THERMOSPRAY OPERATOR.SHOF respirations Mental status Calm 08/07/24 14:04 THERMOSPRAY OPERATOR.SHOF nausea No 08/07/24 14:04 THERMOSPRAY OPERATOR.SHOF Vomiting No 08/07/24 14:04 THERMOSPRAY OPERATOR.SHOF Anesthesia Postop Eval I: Fluid Summary Crystalloid volume administer 1,400 08/07/24 14:04 THERMOSPRAY OPERATOR.SHOF (ml) Colloids volume administered ( ml) Blood Product volume administered (ml) Total IV fluid infused 1,400 08/07/24 14:04 THERMOSPRAY OPERATOR.SHOF Anesthesia Postop Eval I: Summary Notes Anesthesia Complication No 08/07/24 14:04 THERMOSPRAY OPERATOR.SHOF Anesthesia Complication Comment: Post-operative progress note Anesthesia: Postop Eval II Evaluation Mental status: Awake and Calm Pain Level: 6 nausea: No Vomiting: No Complications Anesthesia Complication: No
--- NOTE | 2024-08-07 15:36 | PCM.POSTANE2 ---
Anesthesia Postop Eval I Sum Postop Eval Completion status Anesthesia document: Postop Eval 1 completed: Yes Anesthesia Postop Eval I Summary Anesthesia Postop Eval I Summary: Anesthesia Postop Eval I: Assessment Summary Airway patent Yes 08/07/24 14:04 SHOP [email or web address] Spontaneous unlabored Yes 08/07/24 14:04 SHOP [email or web address] respirations Mental status Calm 08/07/24 14:04 SHOP [email or web address] nausea No 08/07/24 14:04 SHOP ROUTER.SHOF Vomiting No 08/07/24 14:04 SHOP [email or web address] Anesthesia Postop Eval I: Fluid Summary Crystalloid volume administer 1,400 08/07/24 14:04 SHOP [email or web address].SHOF (ml) Colloids volume administered ( ml) Blood Product volume administered (ml) Total IV fluid infused 1,400 08/07/24 14:04 SHOP [email or web address] Anesthesia Postop Eval I: Summary Notes Anesthesia Complication No 08/07/24 14:04 SHOP [email or web address].SHOF Anesthesia Complication Comment: Post-operative progress note Anesthesia: Postop Eval II Evaluation Mental status: Awake and Calm Pain Level: 6 nausea: No Vomiting: No Complications Anesthesia Complication: No
[2024-08-07 17:00] LABS: Hematocrit 35.1 % (37-47); Hemoglobin 12.1 g/dL (12.0-15.0); Immature Granulocytes Count 0.090 X10^3/uL (0.0-0.0); Mean Corp Hgb Conc 34.5 g/dL (32-36); Mean Corpuscular Volume 86.5 fL (81-99); Mean Platelet Vol. 9.1 fl (6.2-12.0); NRBC Flagged by Analyzer 0 % (0-5); Platelet Count 194 K/mm3 (150-450); RBC Distribution Width CV 11.7 % (11.6-14.6); RBC Distribution Width SD 36.7 fl (35.1-43.9); Red Blood Count 4.06 M/mm3 (4.2-5.4); White Blood Count 15.6 K/mm3 (4.4-11.0)
== END 2024-08-07 17:38 | disposition home or self-care (01) ==
LOC: SDC 09:06 → AC 09:07
PROVIDERS: Student in an Organized Health Care Education/Training Program; PCP Registered Nurse; Referring Provider Obstetrics & Gynecology; Visit Provider Obstetrics & Gynecology
PROC: 0UT9FZZ Resection of Uterus, Via Natural or Artificial Opening With Percutaneous Endoscopic Assistance (ICD-10-PCS; CPT 58552; principal; 2024-08-07 10:50)
DX: N94.6 Dysmenorrhea, unspecified (principal); D25.9 Leiomyoma of uterus, unspecified; D18.09 Hemangioma of other sites; N92.0 Excessive and frequent menstruation with regular cycle; N80.03 Adenomyosis of the uterus; N80.329 Endometriosis of the posterior cul-de-sac, unspecified depth; N73.6 Female pelvic peritoneal adhesions (postinfective); N92.3 Ovulation bleeding; I10 Essential (primary) hypertension; Z79.899 Other long term (current) drug therapy
CPT/HCPCS: 58552; 58563; 56605; 00944; 36415; 81025; 82962; 83735; 85025; 86850; 86900; 86901; 88305; 88307; 93005; J2405; J3475